=== PATIENT | female | born 1965 | race Caucasian/White ===

== ENCOUNTER 2020-04-23 18:32 | Inpatient (IN) | payer OTHER, SELFPAY ==
[~2020-04-23] VITALS: Ht 160 cm; Wt 65.3 kg
[~2020-04-23 18:32] MED LIST: FERR-20 PO
[2020-04-23] MEDS ORDERED: VANCOMYCIN PER PHARMACY MC PRN (18:35)
[2020-04-23] MEDS ORDERED: NACL 0.9% 2,000 ML IV ONE (18:35)
[2020-04-23] MEDS ORDERED: PIPERACILLIN/TAZOBACTAM 3.375 GM in DEXTROSE 5% 50 ML IV ONE (18:35)
[2020-04-23] MEDS ORDERED: VANCOMYCIN 1GM/DEXT 5% PREMIX 200 ML IV ONE (18:35)
--- NOTE | 2020-04-23 18:35 | NUR ---
[facility] GUZMAN TAKEN TO BED 10
[2020-04-23 18:36] VITALS: BP 126/75
[2020-04-23] MEDS ORDERED: MIDAZOLAM 2 MG/2 ML VIAL IVP STA (18:46)
[2020-04-23] MEDS ORDERED: MIDAZOLAM 2 MG/2 ML VIAL ONE (18:47)
--- NOTE | 2020-04-23 18:57 | NUR ---
@1836 received care of 55 y/o female BIBA from home c/o ALOC since this morning. Pt has Hx of liver problems ( unspecified), anemia, per EMS was d/c from here "last Thursday" for generalized bruising of right leg. Noted same bruised leg with pitting edema, jaundiced skin, sclera, ascites of abdomen. Received pt with IV access on left hand 18 G. Pt changed into hospital gown, hooked to monitoring manager. MD at bedside for assessment.
--- NOTE | 2020-04-23 19:01 | NUR ---
EKG performed by te, pt agitated. Advocated for sedation prior to ordered CT without contrast. Versed given. Pt taken to CT for imaging.
[2020-04-23 19:21] LABS: BASOPHILS # (AUTO) 0.2 K/uL (0.00-0.22); BASOPHILS % (AUTO) 3.7 % (0.0-2.0); EOSINOPHILS % (AUTO) 0.3 % (0.0-4.0); HEMATOCRIT 22.9 % (36-48); HEMOGLOBIN 7.8 g/dL (12.0-16.0); LYMPHOCYTES # (AUTO) 0.4 K/uL (2.5-16.5); LYMPHOCYTES % (AUTO) 7.2 % (20.5-51.1); MEAN CORPUSCULAR HEMOGLOBIN 34 pg (27-31); MEAN CORPUSCULAR HGB CONC 34 g/dL (33-37); MEAN CORPUSCULAR VOLUME 99.9 fL (80-94); MONOCYTES # (AUTO) 0.5 K/uL (0.8-1.0); NEUTROPHILS # (AUTO) 4.7 K/uL (1.8-7.7); NEUTROPHILS % (AUTO) 79.8 % (42.2-75.2); PLATELET COUNT (AUTO) 97 K/uL (140-450); RED BLOOD CELL COUNT(AUTO) 2.29 MIL/uL (4.20-5.40); RED CELL DISTRIBUTION WIDTH 21.6 % (11.6-13.7); WHITE BLOOD COUNT (AUTO) 5.9 K/uL (4.8-10.8)
--- NOTE | 2020-04-23 19:23 | NUR ---
RECEIEVED TRANSFER OF CARE REPORT FROM SHILPA DAN FOR CONTINUATION OF CARE.
--- NOTE | 2020-04-23 19:23 | NUR ---
HAND-OFF REPORT GIVEN TO SILVIO DAN FOR CONTINUATION OF NURSING CARE
[2020-04-23] MEDS ORDERED: VANCOMYCIN 1,000 MG VIAL ONE (19:29)
[2020-04-23] MEDS ORDERED: PIPERACILLIN/TAZOBACTAM 3.375 GM VIAL IV ONE (19:30)
[2020-04-23 19:31] LABS: PROTHROMBIN TIME 21.9 secs (10.8-13.4)
--- NOTE | 2020-04-23 20:00 | NUR ---
Per ERMD insert urinary barrientos catheter.
--- NOTE | 2020-04-23 20:06 | NUR ---
# 16 FR Michael catheter with 10 ml utilizing sterile technique. Immediate return of 600 ml orange urine noted. ERMD made aware of urine color. Bedside drainage bag placed below level of bladder. Urine sample collected and sent to lab. Pt tolerated procedure well.
[2020-04-23 20:25] LABS: ACETAMINOPHEN < 0.5 ug/ml (10-30); ALBUMIN 1.9 g/dL (3.4-5.0); ASPARTATE AMINOTRANSFERASE 84 U/L (15-37); CARBON DIOXIDE 19.5 mmol/L (21-32); CHLORIDE 103 mmol/L (98-107); CREATININE 1.1 mg/dL (0.6-1.3); GFR ARICAN-AMERICAN 66 mL/min (>90); GLUCOSE 148 mg/dL (74-106); POTASSIUM 3.5 mmol/L (3.5-5.1); SALICYLATE < 2.8 mg/dL (2.8-20.0); SODIUM SERUM 140 mmol/L (136-145); UREA NITROGEN, BLOOD 12 mg/dL (7-18)
[2020-04-23 20:27] LABS: APPEARANCE,URINE HAZY (CLEAR); BILIRUBIN,URINE 1+ (NEGATIVE); BLOOD, URINE 1+ (NEGATIVE); COLOR,URINE DARK YELLOW (YELLOW); LEUKOCYTE ESTERASE ,URINE NEGATIVE (NEGATIVE); NITRITE, URINE NEGATIVE (NEGATIVE); UGLUCOSE NEGATIVE (NEGATIVE)
[2020-04-23 20:32] LABS: COARSE GRANULAR CASTS,URINE 0-10 /LPF (None Seen); WBC,URINE 16-25 (MOD) /HPF (0-5)
[2020-04-23 20:33] LABS: HYALINE CASTS, URINE 0-10 /LPF (None Seen)
[2020-04-23 20:34] LABS: BARBITURATE, URINE NEGATIVE ng/ml (NEG <=200); BENZODIAZEPINE, URINE POSITIVE ng/mL (NEG <=200); CANNABINOID, URINE NEGATIVE ng/mL (NEG <=50); COCAINE, URINE NEGATIVE ng/mL (NEG <=300); OPIATE, URINE NEGATIVE ng/mL (NEG <=2000); PHENCYCLIDINE SCREEN,URINE NEGATIVE ng/mL (NEG <=25)
[2020-04-23] MEDS ORDERED: LACTULOSE 20 GM/30 ML UDC PO STA (20:41)
[2020-04-23] MEDS ORDERED: ONDANSETRON 4 MG/2 ML VIAL IVP STA (20:42)
--- NOTE | 2020-04-23 20:49 | NUR ---
roma kate swab collected and walked to lab.
--- NOTE | 2020-04-23 21:10 | NUR ---
# 14 FR NG tube placed to Right nare. Placement checked by auscultation of instilled air into stomach and aspiration of gastric contents. Tubing taped in place to prevent dislodging. Patient tolerated well.
--- NOTE | 2020-04-23 21:30 | NUR ---
PT FOUND ASLEEP IN SEMI-MOREIRA'S POSITION IN BED. PT HAS EQUAL RISE AND FALL UPON RESPIRATION. PT DOES NOT APPEAR TO BE IN DISTRESS. BED LOCKED IN LOWEST POSITION WITH 2 SIDE RAILS UP FOR SAFETY.
[2020-04-23] MEDS ORDERED: METOCLOPRAMIDE 10 MG/2 ML INJ VIAL IVP PRN (21:35)
[2020-04-23] MEDS ORDERED: ONDANSETRON 4 MG/2 ML VIAL IVP PRN (21:35)
[2020-04-23] MEDS ORDERED: MAGNESIUM OXIDE 400 MG TAB PO PRN (21:35)
[2020-04-23] MEDS ORDERED: POTASSIUM CHLORIDE 10 MEQ TABER PO PRN (21:35)
[2020-04-23] MEDS ORDERED: HYDROcodone/APAP 5/325 MG 1 TAB TAB PO PRN (21:35)
[2020-04-23] MEDS ORDERED: LORazepam 1 MG TAB PO PRN (21:35)
[2020-04-23] MEDS ORDERED: DEXT 5% /NACL 0.9% 1,000 ML IV SCH (21:35)
--- NOTE | 2020-04-23 21:47 | NUR ---
SPOKE TO PT SISTER "KEMAL FIELDSEZ" TO UPDATE ON PT STATUS. BEST CONTACT PER "KEMAL CHILDRESS" IS [phone]
--- NOTE | 2020-04-23 21:55 | NUR ---
ADVANCED NG TUBE 6CM PER PREVIOUS CT IMPRESSION RECOMMENDATION. REPEAT CT ORDER PLACED.
--- NOTE | 2020-04-23 22:00 | NUR ---
CT AT BEDSIDE.
--- NOTE | 2020-04-23 22:09 | NUR ---
SPOKE TO PT'S DAUGHTER "CLARITA TIAN" TO UPDATE ON PT STATUS. PER "CLARITA TIAN", BEST CONTACT IS [phone]
--- NOTE | 2020-04-23 22:20 | NUR ---
LAB AT BEDSIDE.
--- NOTE | 2020-04-23 22:47 | NUR ---
Patient will be admitted to care of DR SANCHEZ. Admited to TELEMETRY. Will go to room 123B. Belongings list completed. Report to DOROTHY DAN.
--- NOTE | 2020-04-23 22:59 | NUR ---
PT WAS TRANSFERRED TO ROOM 123b RECEIVING NURSE DOROTHY DAN AT BEDSIDE.
--- NOTE | 2020-04-23 22:59 | NUR ---
PT ARRIVED FROM ED TO UNIT VIA GURNEY. PT WITH ALOC, UNABLE TO MAKE NEEDS KNOWN. RESPIRATIONS ARE EVEN AND UNLABORED TO ROOM AIR. ABDOMEN IS SOFT AND NON-TENDER. PT WITH NGT IN PLACE. SKIN IS JAUNDICED, WARM, DRY, AND INTACT. PT WITH BRUISES ON RIGHT LEG. PT WITH IV ACCESS ON LEFT HAND G18 AND R HAND G20 PATENT AND INTACT. PT ONLY RESPONDING TO PAIN, PERRL. PT CONNECTED TO TELE MONITOR, VS TAKEN, MRSA SWAB COLLECTED. PT KEPT SAFE AND COMFORTABLE. WILL CONTINUE TO MONITOR.
[2020-04-23 23:00] VITALS: BP 157/91
[2020-04-23] MEDS ORDERED: cefTRIAXone 1,000 MG VIAL ONE (23:09)
[2020-04-24] VITALS (9 sets, daily range): BP systolic 84–110; BP diastolic 47–64
[2020-04-24] MEDS ORDERED: PROPRANOLOL 20 MG TAB PO SCH ×2 (00:50→09:00)
--- NOTE | 2020-04-24 01:00 | NUR ---
HR 130'S. DR. SANCHEZ MADE AWARE. PROPANOLOL 20MG PO ONCE GIVEN PER ORDER. WILL CONTINUE TO MONITOR.
[2020-04-24] MEDS ORDERED: CRUSHER, PILL MC ONE (01:02)
--- NOTE | 2020-04-24 03:36 | NUR ---
PT ASLEEP. VISIBLE CHEST RISE AND FALL NOTED. NO S/SX OF DISTRESS NOTED. PT KEPT SAFE AND COMFORTABLE. WILL CONTINUE TO MONITOR.
--- NOTE | 2020-04-24 04:42 | NUR ---
VS STABLE. PT STILL WITH ALOC. ONLY RESPONDS TO PAIN. PERINEAL CARE DONE WITH DIALYSIS RN. PT TOLERATED CARE WELL. NO S/SX OF DISTRESS NOTED. PT KEPT SAFET AND COMFORTABLE. CALL LIGHT WITHIN REACH. WILL CONTINUE TO MONITOR.
[2020-04-24 06:27] LABS: MAGNESIUM 1.1 mg/dL (1.8-2.4); PHOSPHORUS 1.5 mg/dL (2.5-4.9)
[2020-04-24 06:36] LABS: ALBUMIN 1.5 g/dL (3.4-5.0); ANION GAP 15.6 (8-16); CARBON DIOXIDE 21.9 mmol/L (21-32); POTASSIUM 3.5 mmol/L (3.5-5.1); TOTAL BILIRUBIN 9.9 mg/dL (0.0-1.0)
--- NOTE | 2020-04-24 07:21 | NUR ---
ENDORSED TO DAY SHIFT NURSE FOR CONTINUITY OF CARE
--- NOTE | 2020-04-24 07:22 | NUR ---
RECEIVED REPORT FROM INSPECTOR METAL CAN RN FOR CONTINUITY OF CARE. PATIENT ASLEEP IN BED WITH SUPINE POSITION, HOB ELEVATED 30 DEGREE. O2 SAT 98%, HR 85. NG TUBE IN PLACE, NPO EXCEPT MEDS. NERI CATHETER IN PLACE. IV SITE TO LEFT HAND INFUSING D5NS @ 80ML/HR. PATIENT IS NOT ALERT OR ORIENTED ONLY RESPONSE TO PAIN, PER INSPECTOR METAL CAN RN. SAFETY MEASURES IN PLACE, WILL CONTINUE TO MONITOR.
[2020-04-24] MEDS: LACTULOSE 20 GM/30 ML UDC PO SCH ×4 (08:42→21:17)
[2020-04-24] MEDS ORDERED: DOCUSATE 100 MG/10 ML UDC PO SCH (09:00)
[2020-04-24] MEDS ORDERED: DOCUSATE SODIUM 100 MG GELCAP PO SCH (09:00)
--- NOTE | 2020-04-24 09:32 | NUR ---
PATIENT HAS BEEN SCREENED AND CATEGORIZED MODERATE NUTRITION RISK. PATIENT WILL BE SEEN WITHIN 3-5 DAYS OF ADMISSION. 04/26/20 04/28/[address]
[2020-04-24 09:46] LABS: BASOPHILS % (AUTO) 0.3 % (0.0-2.0); EOSINOPHILS % (AUTO) 0.1 % (0.0-4.0); LYMPHOCYTES # (AUTO) 1.5 K/uL (2.5-16.5); LYMPHOCYTES % (AUTO) 11.6 % (20.5-51.1); MEAN CORPUSCULAR HEMOGLOBIN 34 pg (27-31); MEAN CORPUSCULAR HGB CONC 34 g/dL (33-37); MEAN CORPUSCULAR VOLUME 98.7 fL (80-94); MONOCYTES # (AUTO) 1.4 K/uL (0.8-1.0); MONOCYTES % (AUTO) 10.6 % (1.7-9.3); NEUTROPHILS # (AUTO) 10.1 K/uL (1.8-7.7); NEUTROPHILS % (AUTO) 77.4 % (42.2-75.2); PLATELET COUNT (AUTO) 92 K/uL (140-450); RED CELL DISTRIBUTION WIDTH 22.2 % (11.6-13.7); WHITE BLOOD COUNT (AUTO) 13.1 K/uL (4.8-10.8)
[2020-04-24 10:04] LABS: HEMATOCRIT 15.8 % (36-48); HEMOGLOBIN 5.4 g/dL (12.0-16.0)
--- NOTE | 2020-04-24 11:02 | NUR ---
PATIENT HAD LARGE BM WITH BLOODY STOOL. DR. BROWN INFORMED AND DR. BROWN PERSONALLY SEE THE PATIENT. HOB ELEVATED, WILL CONTINUE TO MONITOR.
[2020-04-24] MEDS ORDERED: PHYTONADIONE 10 MG in NACL 0.9% 50 ML IV SCH ×2 (11:30→14:30)
[2020-04-24] MEDS ORDERED: DEXT 5% / NACL 0.9% 500 ML IV SCH (11:55)
[2020-04-24] MEDS: DEXT 5% /NACL 0.9% 1,000 ML IV SCH (12:17)
[2020-04-24] MEDS: MAG SULF 2000 MG/WATER PREMIX 50 ML IV PRN (12:17)
--- NOTE | 2020-04-24 12:17 | NUR ---
MAG RIDER GIVEN VIA IVF FOR MAGNESIUM LEVEL 1.1. O2 SAT 98% IN RA. HR 81. SAFETY MEASURES IN PLACE, WILL CONTINUE TO MONITOR.
[2020-04-24] MEDS ORDERED: PANTOPRAZOLE 80 MG in NACL 0.9% 100 ML IVP SCH (12:30)
[2020-04-24] MEDS: OCTREOTIDE ACETATE 1.25 MG in NACL 0.9% 250 ML IV SCH (13:10)
--- NOTE | 2020-04-24 13:10 | NUR ---
OCTROTIDE GIVEN VIA IVF @ 10ML/HR. PER MD ORDER. WILL CONTINUE TO MONITOR.
[2020-04-24] MEDS ORDERED: PHYTONADIONE 10 MG/ML AMP IV ONE (13:55)
[2020-04-24] MEDS: PANTOPRAZOLE 80 MG in NACL 0.9% 100 ML IV SCH ×2 (14:20→22:30)
--- NOTE | 2020-04-24 14:20 | NUR ---
PATIENT WAS RE-SCREENED AND CATEGORIZED HIGH NUTRITIONAL RISK DUE TO TUBE FEEDING ORDER. PATIENT WILL BE ASSESSED WITHIN 1-[address]
--- NOTE | 2020-04-24 14:24 | NUR ---
SOCIAL WORK NOTE: Patient's Orientation Unable To Assess Information Provided By RAY CHILDRESS Jorge WAREMELCHOR Comments SW WAS UNABLE TO MEET PATIENT AT BEDSIDE. SW COMPLETED ASSESSMENT WITH PATIENT'S BROTHER. Digital Account Coordinator, Realtionship and Phone Number RAY PANDYA [phone] [facility] Power of Printed Circuit Board Pcb Designer No Does Patient Have a POLST No Identifying Problems No Social Work Triggers Is A Social Work Consult Needed No Mandate Report Filed No Explanation Of Identifying Problems PATIENT IS A 55-YEAR-OLD FEMALE ADMITTED FOR HEPATIC ENCEPHALOPATHY. PATIENT HAS PMHX OF LIVER DISEASE. Admitted From Home Pre-Admission Level Of Functioning Status Independent/Ambulatory Prior Resources/Services Used In Last 12 Months No Prior Resources Used Prior DME No Prior DME Used Dialysis Comments N/A Living Situation Lives With Family House Patient Had Caregiver No Home Support No Caregiver Issues Financial Issues No Known Financial Issue Referral To The Financial Counselor Needed No Factors/Needs No D/C Needs Identified Pt/Rep Participated In Discharge Plan Yes Patient/Family Agress With Discharge Plan Yes Discharge Plan Comments TENTATIVE DISCHARGE PLAN IS FOR PATIENT TO RETURN HOME. DC Plan Status Initiated
--- NOTE | 2020-04-24 14:37 | NUR ---
DC PLANNIN YRS OLD FEMALE PATIENT WAS ADMITTED FROM HOME WITH A DX OF HEPATIC ENCEPHALOPATHY. PT HAS A HX OF ALCOHOLIC LIVER CIRRHOSIS, ANEMIA. CXR SHOWED NO ACUTE DISEASE, CT HEAD NEGATIVE HIP AND KNEE X-RAY NO FRACTURE. RAPID COVID TEST NEGATIVE. H/H ON ADMISSION 5.4/15.8 TRANSFUSED 2 UNITS PRBC AND H/H 7.8/22.9. ADMINISTERED IVF, LACTULOSE THROUGH NGT . PT HAS RT THIGH HEMATOMA. CONSULTED WITH GI . DC PLAN TO GO HOME WHEN STABLE CM TO FOLLOW Addendum: 05/01/20 at 1119 by Danielle Copeland CM COREY WALTER: DR. SANCHEZ DISCUSSED HOSPICE WITH PATIENTS FAMILY.FAXED PATIENTS CLINICALS TO [facility]. Addendum: 05/01/20 at 1210 by Danielle Copeland CM COREY WALTER: SPOKE TO NATALIE AT [facility], SHE WILL BE REACHING OUT TO PATIENTS FAMILY SHORTLY. Addendum: 05/01/20 at 1406 by Ellen Garrett RN DC PLANNING: DR SANCHEZ SPOKE WITH PATIENT'S SISTER OLIVA SOMMER DISCUSSED THE HOSPICE AND FAMILY DECIDED PT TO BE ON HOSPICE. [facility] WILL CONTACT PATIENT CM TO FOLLOW. Addendum: 05/01/20 at 1606 by Ellen Garrett RN DC PLANNING: CALLED PT'S SISTER [phone] SPOKE WITH KEMAL HUGO THAT AGREED ON HOSPICE. LASHAY BEDOYA CHOSE [facility] AND SIGNED THE PAPERWORK. RECEIVED A CALL FROM [facility] [phone] SPOKE WITH ROSENDA STATED DAY CARE PROVIDER TIME WILL BE BETWEEN 6:30 -7:30 PM WITH [employer]. NOTIFIED JOHANNA BLUNT CM TO FOLLOW.
--- NOTE | 2020-04-24 17:00 | NUR ---
PICKED 1 UNIT OF RED BLOOD CELLS FROM THE BLOOD BANK.
--- NOTE | 2020-04-24 17:15 | NUR ---
VERIFIED WITH HOLLIE/RN, BLOOD TRANSFUSION STARTED WITH 50ML/HR. V/S CHECKED. BP 80/35. TEMP 98.2, HR 79. WILL CONTINUE TO MONITOR.
--- NOTE | 2020-04-24 17:30 | NUR ---
PATIENT TOLERATED THE BLOOD TRANSFUSION WELL. NO REACTION NOTED, WILL CONTINUE TO MONITOR.
--- NOTE | 2020-04-24 19:00 | NUR ---
PATIENT RECEIVED IN BED ALERT AND ORIENTED OCCASIONALLY TO SELF. SLEEPING DURING ROUNDING, PATIENT CONTINUED ON BLOOD TRANSFUSION. BLOOD TRANSFUSION CONTINUING. BP 102/69. O2 SAT 97% IN RA. RN. MAXIMAL CARE RENDERED. FALL AND SAFETY PRECAUTIONS MAINTAINED. 1 UNIT OF BLOOD INFUSING TO RIGHT HAND, FALL AND SAFETY PRECAUTIONS CONTINUED. PATIENT REMAINS NPO. NGT TO RIGHT NARE PATENT AND IN PLACE. JEVITY 1.2 CONTINUED AT 30ML/HR WITH 100CC H20 EVERY 4 HOURS. NO ACUTE DISTRESS NOTED. ONGOING CARE RENDERED. VSS.
--- NOTE | 2020-04-24 19:10 | NUR ---
ENDORSED PATIENT TO INDUSTRIAL REFRIGERATION MECHANIC RN FOR CONTINUITY OF CARE. PATIENT IN STABLE CONDITION STILL RUNNING BLOOD TRANSFUSION. BP 103/59. O2 SAT 97% IN RA.
[2020-04-24] MEDS: SENNA 8.6 MG TAB PO SCH (21:17)
[2020-04-24] MEDS: RIFAXIMIN 550 MG TAB PO SCH (21:17)
[2020-04-24] MEDS: HYDROCORTISONE SUPPOSITORY 25 MG SUPP RC SCH (21:19)
--- NOTE | 2020-04-24 22:30 | NUR ---
Attending physician Dr. Lin notified of patient blood culture result gram negative rods per lab results. No new orders given at this time.
[2020-04-25] VITALS (11 sets, daily range): BP systolic 106–131; BP diastolic 53–82
[2020-04-25] MEDS: DEXT 5% /NACL 0.9% 1,000 ML IV SCH ×2 (01:29→14:11)
--- NOTE | 2020-04-25 08:00 | NUR ---
PATIENT IS AOX0, OBTUNDED, RESPONSIVE TO PAINFUL STIMULI, UNABLE TO FOLLOW COMMANDS OR OPEN EYES SPONTANEOUSLY. SINUS RHYTHM, RESPIRATIONS EVEN AND UNLABORED ON ROOM AIR. VITAL SIGNS STABLE. NG TUBE TO RIGHT NARES WITH JEVITY 1.2 AT 30 CC/HOUR TOLERATING WELL WITH NO RESIDIUAL NOTED. IV FLUIDS INFUSING. BILATERAL HAND AND LOWER EXTREMITY EDEMA +1. RIGHT THIGH/LEG WITH NOTICEABLE HEMATOMA AND BRUISING. NERI CATHETER WITH CLEAR DARK ORANGE URINE. LAST BM LAST NIGHT, DIARRHEA. UPDATED PATIENT'S DAUGHTER ON PLAN OF CARE. REPOSITIONED Q2 HOURS. SKIN KEPT CLEAN DRY AND INTACT. WILL CONTINUE TO MONITOR.
--- NOTE | 2020-04-25 08:30 | NUR ---
Received patient, AOx4, sinus rhythm, respirations even and unlabored on room air 97%. Reports pain 7/10 sharp in RUQ. PRN Toradol given with relief. Patient denies passing gas. Ambulating to bathroom but with significant pain. 4x lap sites are clean dry intact covered with Dermabond. Tolerating meals well with no nausea/vomiting. Encouraged deep breathing and ambulating. Patient verbalized understanding. Discharge orders are in, patient agreeable to discharging home today with [place] and Ibuprofen. Notified Dr. Rolle. Addendum: 04/25/20 at 1020 by Agency 08 SY DAN Wrong patient
[2020-04-25] MEDS: PANTOPRAZOLE 80 MG in NACL 0.9% 100 ML IV SCH ×2 (08:43→18:23)
[2020-04-25] MEDS: RIFAXIMIN 550 MG TAB PO SCH ×2 (08:44→20:58)
[2020-04-25] MEDS: LACTULOSE 20 GM/30 ML UDC PO SCH ×4 (08:44→20:58)
[2020-04-25] MEDS: SENNA 8.6 MG TAB PO SCH ×2 (08:44→20:58)
[2020-04-25] MEDS ORDERED: POTASSIUM CHLORIDE 20% 40 MEQ/15 ML UDC GT SCH (09:00)
[2020-04-25] MEDS ORDERED: PHYTONADIONE 10 MG in NACL 0.9% 50 ML IV SCH (09:00)
[2020-04-25 09:38] LABS: BASOPHILS # (AUTO) 0.1 K/uL (0.00-0.22); BASOPHILS % (AUTO) 0.5 % (0.0-2.0); EOSINOPHILS % (AUTO) 0.5 % (0.0-4.0); HEMATOCRIT 21.6 % (36-48); HEMOGLOBIN 7.4 g/dL (12.0-16.0); LYMPHOCYTES # (AUTO) 1.7 K/uL (2.5-16.5); LYMPHOCYTES % (AUTO) 17.9 % (20.5-51.1); MEAN CORPUSCULAR HEMOGLOBIN 33 pg (27-31); MEAN CORPUSCULAR HGB CONC 34 g/dL (33-37); MEAN CORPUSCULAR VOLUME 95.2 fL (80-94); MONOCYTES # (AUTO) 1.2 K/uL (0.8-1.0); MONOCYTES % (AUTO) 12.5 % (1.7-9.3); NEUTROPHILS # (AUTO) 6.6 K/uL (1.8-7.7); NEUTROPHILS % (AUTO) 68.6 % (42.2-75.2); PLATELET COUNT (AUTO) 52 K/uL (140-450); RED BLOOD CELL COUNT(AUTO) 2.27 MIL/uL (4.20-5.40); RED CELL DISTRIBUTION WIDTH 17.9 % (11.6-13.7); WHITE BLOOD COUNT (AUTO) 9.7 K/uL (4.8-10.8)
[2020-04-25 10:18] LABS: ALBUMIN 1.7 g/dL (3.4-5.0); ANION GAP 13.3 (8-16); CARBON DIOXIDE 25.7 mmol/L (21-32); CREATININE 1.4 mg/dL (0.6-1.3); MAGNESIUM 1.9 mg/dL (1.8-2.4); TOTAL BILIRUBIN 9.8 mg/dL (0.0-1.0)
[2020-04-25] MEDS: HYDROCORTISONE SUPPOSITORY 25 MG SUPP RC SCH ×2 (11:53→20:59)
[2020-04-25] MEDS: KCL 20 MEQ/WATER INJ PREMIX 200 ML IV PRN ×2 (11:54→14:12)
--- NOTE | 2020-04-25 13:00 | NUR ---
PATIENT REMAINS OBTUNDED, OCCASIONALLY WAKING UP AND MOVING/SQUIRMING, STILL UNABLE TO FOLLOW COMMANDS.
[2020-04-25] MEDS: OCTREOTIDE ACETATE 1.25 MG in NACL 0.9% 250 ML IV SCH (13:07)
--- NOTE | 2020-04-25 14:19 | NUR ---
INCREASED TUBE FEEDING RATE TO 40 CC/HOUR (GOAL RATE PER ELECTRICIAN SOUND)
--- NOTE | 2020-04-25 15:24 | NUR ---
04/25/20 RD INITIAL ASSESSMENT COMPLETED PLEASE REFER TO NUTRITION ASSESSMENT UNDER CARE ACTIVITY FOR ESTIMATED NUTRITIONAL NEEDS. 1. RECOMMEND INCREASING GOAL RATE OF JEVITY 1.2 TO 40 ML/HR X 24 HR -WILL PROVIDE 1152 KCAL AND 53 GM OF PROTEIN. MEETING OVER 80% OF KCAL AND PROTEIN NEEDS 2. CONTINUE FREE WATER FLUSH OF 100 ML Q6H 3. IF/WHEN MEDICALLY STABLE FOR PO DIET, RECOMMEND SWALLOW EVALUATION 4. RD TO FOLLOW-UP 2-3 DAYS, HIGH RISK TOÑO [address] RD
--- NOTE | 2020-04-25 16:10 | NUR ---
PATIENT BECOMING INCREASINGLY RESTLESS &SQUIRMING IN BED AND PULLING AT NG TUBE. ATTEMPTED CALMING MEASURES. PATIENT REMOVED IV IN LEFT HAND. NOTIFIED DR. BROWN, RECEIVED ORDERS FOR PRN ATIVAN.
[2020-04-25 16:11] LABS: HEMATOCRIT 22.8 % (36-48); HEMOGLOBIN 7.7 g/dL (12.0-16.0)
[2020-04-25] MEDS ORDERED: PHYTONADIONE 10 MG/ML AMP SUBQ SCH (16:15)
[2020-04-25] MEDS ORDERED: MAG SULF 2000 MG/WATER PREMIX 100 ML IV ONE (16:15)
[2020-04-25] MEDS: LORazepam 2 MG/ML VIAL IVP PRN ×2 (16:48→22:27)
[2020-04-25] MEDS: POTASSIUM CHLORIDE 20% 40 MEQ/15 ML UDC GT SCH (17:18)
--- NOTE | 2020-04-25 18:20 | NUR ---
PATIENT IS NOW CALM, RESTING QUIETLY IN BED. NGT WITH JEVITY AT 40CC/HOUR. OCTREOTIDE AND PROTONIX GTT INFUSING. MAG RIDER INFUSING. NERI CATHETER DRAINING ORANGE URINE WITH SEDIMENTS. PATIENT HAD ONE BM, MAROON COLOR/FOUL ODOR. DR SHETTY AWARE. REMAINS SINUS RHYTHM ON COLLAR TAILOR. WILL ENDORSE TO NIGHT RN.
--- NOTE | 2020-04-25 19:25 | NUR ---
RECEIVED PT IN STABLE CONDITION FROM AM NURSE. ON TELE MONITOR. SLEEPING AT THIS TIME. RESPIRATION EVEN AND UNLABORED. HAS NGT IN PLACED GETTING JEVITY. HAS IV ACCESS LT UPEER ARM AND RT HAND G#20. GETTING IVF AND MAGNESIUM RIDER, PROTONIX AND SANDOSTATIN IV. BEDREST. NERI CATHETER TO GRAVITY DRAINING TO CLEAR DARK YELLOW URINE. FREQ ROUNDS NEEDED. BED ON LOWEST POSITION. SIDE RAILS UP X2. CALL LIGHT WITHIN REACH. WILL CONTINUE TO MONITOR.
[2020-04-25] MEDS: SODIUM PHOS / POTASSIUM PHOS 1 PKT PDR PO SCH (20:58)
--- NOTE | 2020-04-25 21:30 | NUR ---
PT HAD A LOOSE BM WITH BLOOD SMALL AMOUNT. CLEANED AND KEPT DRY. REPOSITIONED FOR COMFORT.
--- NOTE | 2020-04-25 22:15 | NUR ---
KEMAL, FAMILY MEMBER, VARNISHER JUST CALLED AND UPDATED ON PT CONDITION.
--- NOTE | 2020-04-25 22:27 | NUR ---
PT AGITATED, TRYING TO GET OUT OF BED. ATIVAN IVP GIVEN ORDERED PRN. REPOSITIONED AGAIN FOR COMFORT. WILL CONTINUE TO MONITOR.
[2020-04-26] VITALS: BP 125/67
--- NOTE | 2020-04-26 00:30 | NUR ---
CHECKED ON PT. SLEEPING. NO S/S OF ANY DISTRESS NOTED.
--- NOTE | 2020-04-26 02:00 | NUR ---
MADE ROUNDS. PT IS ASLEEP. IVF AND NGT FEEDING INFUSING WELL .
[2020-04-26] MEDS: DEXT 5% /NACL 0.9% 1,000 ML IV SCH (03:49)
[2020-04-26 04:00] VITALS: BP 143/77
[2020-04-26] MEDS: PANTOPRAZOLE 80 MG in NACL 0.9% 100 ML IV SCH (04:15)
--- NOTE | 2020-04-26 05:00 | NUR ---
PT HAD X2 LOOSE BLOODY STOOL. CLEANED AND KEPT DRY. REPOSITION FOR COMFORT.
[2020-04-26] MEDS: LORazepam 2 MG/ML VIAL IVP PRN ×2 (05:55→11:21)
--- NOTE | 2020-04-26 05:55 | NUR ---
PT STARTED AGAIN TO BE VERY AGITATED , KEEP ON MOVING ON THE BED , LEGS ON SIDE RAILS. MEDICATED WITH ATIVAN IV. REPOSITIONED FOR COMFORT.
[2020-04-26 06:14] LABS: PROTHROMBIN TIME 16.5 secs (10.8-13.4)
[2020-04-26 06:40] LABS: ALBUMIN 1.7 g/dL (3.4-5.0); ANION GAP 10.2 (8-16); CARBON DIOXIDE 25.8 mmol/L (21-32); CREATININE 1.1 mg/dL (0.6-1.3); PHOSPHORUS 2.4 mg/dL (2.5-4.9); TOTAL BILIRUBIN 10.3 mg/dL (0.0-1.0)
[2020-04-26 06:55] LABS: BASOPHILS % (AUTO) 0.5 % (0.0-2.0); EOSINOPHILS # (AUTO) 0.1 K/uL (0-0.4); EOSINOPHILS % (AUTO) 0.6 % (0.0-4.0); HEMATOCRIT 20.9 % (36-48); HEMOGLOBIN 7.2 g/dL (12.0-16.0); LYMPHOCYTES # (AUTO) 1.4 K/uL (2.5-16.5); LYMPHOCYTES % (AUTO) 14.3 % (20.5-51.1); MEAN CORPUSCULAR HEMOGLOBIN 33 pg (27-31); MEAN CORPUSCULAR HGB CONC 34 g/dL (33-37); MEAN CORPUSCULAR VOLUME 96.2 fL (80-94); MONOCYTES # (AUTO) 0.9 K/uL (0.8-1.0); NEUTROPHILS % (AUTO) 74.6 % (42.2-75.2); PLATELET COUNT (AUTO) 53 K/uL (140-450); RED BLOOD CELL COUNT(AUTO) 2.17 MIL/uL (4.20-5.40); RED CELL DISTRIBUTION WIDTH 18.1 % (11.6-13.7); WHITE BLOOD COUNT (AUTO) 9.5 K/uL (4.8-10.8)
--- NOTE | 2020-04-26 07:00 | NUR ---
MADE ROUNDS AGAIN. PT CONFUSED. REPOSITIONED FOR COMFORT.
--- NOTE | 2020-04-26 07:25 | NUR ---
ENDORSED PT IN STABLE CONDITION TO AM NURSE.
--- NOTE | 2020-04-26 07:26 | NUR ---
RECEIVED ENDORSEMENT FROM FORECLOSURE FIELD INSPECTOR NURSE FOR CONTINUATION PLAN OF CARE. PATIENT IN BED AOX0. PATIENT IV SITE IS IN PLACE AND INTACT. TUBE FEEDING IS IN PLACE AND INTACT. SAFETY MEASURES ARE IN PLACE. CALL LIGHT WITHIN REACH. WILL CONTINUE TO MONITOR NEEDED.
[2020-04-26 08:00] VITALS: BP 140/62
[2020-04-26] MEDS: LACTULOSE 20 GM/30 ML UDC PO SCH ×3 (08:59→21:00)
[2020-04-26] MEDS: RIFAXIMIN 550 MG TAB PO SCH ×2 (09:00→21:00)
[2020-04-26] MEDS: POTASSIUM CHLORIDE 20% 40 MEQ/15 ML UDC GT SCH ×2 (09:00→12:23)
[2020-04-26] MEDS: SODIUM PHOS / POTASSIUM PHOS 1 PKT PDR PO SCH (09:00)
[2020-04-26] MEDS: SENNA 8.6 MG TAB PO SCH (09:00)
--- NOTE | 2020-04-26 09:20 | NUR ---
MEDICATION DUE GIVEN CHECK VITAL SIGNS PRIOR TO MEDICATION BP 140/62 AL 71 PT IS STABLE NO DISTRESS NOTED STILL WITH TUBE FEEDING.
--- NOTE | 2020-04-26 09:30 | NUR ---
WHILE PROVIDING HYGIENIC CARE TO PATIENT. NOTICED PATIENT HAS BLOODY STOOL. DR. BROWN MADE AWARE. WILL CONTINUE MONITOR NEEDED
[2020-04-26] MEDS: HYDROCORTISONE SUPPOSITORY 25 MG SUPP RC SCH (09:44)
--- NOTE | 2020-04-26 09:44 | NUR ---
HYDROCORTISONE SUPPOSITORY 25MG GIVEN AND PATIENT HAS BLOODY STOOL DR BROWN AWARE.
[2020-04-26 12:00] VITALS: BP 156/90
[2020-04-26] MEDS ORDERED: PHYTONADIONE 10 MG/ML AMP SUBQ SCH (12:00)
--- NOTE | 2020-04-26 12:12 | NUR ---
MEDICATION DUE GIVEN PATIENT IS STABLE,
[2020-04-26] MEDS ORDERED: POTASSIUM CHLORIDE 20% 40 MEQ/15 ML UDC GT SCH (12:52)
[2020-04-26] MEDS: OCTREOTIDE ACETATE 1.25 MG in NACL 0.9% 250 ML IV SCH (12:54)
--- NOTE | 2020-04-26 12:58 | NUR ---
MEDICATION DUE GIVEN AND SANDOSTATIN INCREASE FROM 10 ML/HR TO 20 ML/HR PER DR SHETTY ORDER.
--- NOTE | 2020-04-26 13:22 | NUR ---
PATIENT TUBE FEEDING PUT ON HOLD PT IS NPO FOR NM SCAN TO RULE OUT GI BLEED PER FARNAZ (RADIOLOGIST) REQUEST.
--- NOTE | 2020-04-26 13:30 | NUR ---
PATIENT IS SCHEDULED FOR NM SCAN TO RULE OUT GI BLEED CALLED RADIOLOGIST AND BE HERE AROUND 6-7 PM TODAY.
[2020-04-26 16:00] VITALS: BP 126/79
[2020-04-26] MEDS: FERROUS SULFATE 325 MG TABEC PO SCH ×2 (16:37→20:00)
--- NOTE | 2020-04-26 17:00 | NUR ---
PATIENT PULLED OUT NG TUBE NO MEDICATION GIVEN.
--- NOTE | 2020-04-26 19:11 | NUR ---
ENDORSED TO SHEET METAL LAYOUT WORKER NURSE FOR CONTINUATION OF PLAN OF CARE. PATIENT IS IN STABLE CONDITION.
--- NOTE | 2020-04-26 19:15 | NUR ---
RECEIVED PT IN STABLE CONDITION FROM AM NURSE.PT ON TELE MONITOR. BEDREST. CONFUSED. WITH REGAN SOFT WRIST RESTRAINT TO PREVENT PULLING OF TUBES AND DISRUPTION OF CARE. AT THIS TIME PT IS ASLEEP. WITH IVF INFUSING ON THE LT UPPER ARM . NERI CATH DRAINING TO A DARK YELLOW COLORED URINE. NEED TO REINSERT NGT FOR FEEDING AND MEDICATIONS . FREQ ROUNDS NEEDED. BED ON LOW POSITION. SIDE RAILS UP X2 AND CALL LIGHT WITHIN REACH. WILL CONTINUE TO MONITOR.
[2020-04-26 20:00] VITALS: BP 139/91
--- NOTE | 2020-04-26 20:00 | NUR ---
TEMP 101. REMOVED ALL BLANKETS FOR NOW. COOLING MEASURES DONE. WILL CONTINUE TO MONITOR.
--- NOTE | 2020-04-26 20:27 | NUR ---
LEATHER PIECE INSPECTOR FOR BLEED SCAN HERE. OBTAINED 3 ML BLOOD FROM PT TO BE USED FOR THE TEST.
--- NOTE | 2020-04-26 20:28 | NUR ---
PT STILL REMAINS VERY AGITATED AND MOVES A LOT IN BED. TECH SAID HE CAN'T DO THE TEST IF PT IS LIKE THIS . PAGED DR. BROWN TO GET ORDER FOR ATIVAN IV TO CALM HER DOWN. DR. MANZANO RUBBER STAMP ASSEMBLER. WILL WAIT FOR CALL BACK.
[2020-04-26] MEDS ORDERED: LORazepam 2 MG/ML VIAL ONE (20:47)
[2020-04-26] MEDS: LORazepam 2 MG/ML VIAL IVP SCH ×2 (20:50→22:21)
--- NOTE | 2020-04-26 20:50 | NUR ---
ATIVAN 0.5 MG IVP GIVEN PER ONCE ORDERED.
--- NOTE | 2020-04-26 21:00 | NUR ---
TEMP RECHECKED 99.0
--- NOTE | 2020-04-26 21:50 | NUR ---
BLEED SCAN DONE AT BEDSIDE. WILL FOLLOW UP RESULT.
--- NOTE | 2020-04-26 22:50 | NUR ---
LT UPPER ARM IV ACCESS PULLED OUT. NEW IV ACCESS STARTED ON THE RT WRIST G#22. CLEAR AND PATENT.
--- NOTE | 2020-04-26 23:10 | NUR ---
NEW NGT TUBE F#14 INSERTED. PLACEMENT TO BE VERIFIED BY XRAY.
--- NOTE | 2020-04-26 23:40 | NUR ---
FRANKIE TECH CALLED AND SHE SAID THAT THEY CAN'T DO CXR NOT UNTIL AFTER 8-12 HRS DUE TO THE NUCLEAR SCAN THAT WAS JUST DONE. NIKITA DANAUTOMATIC TELLER MACHINE SERVICER AWARE.
[2020-04-27] VITALS: BP 131/89
--- NOTE | 2020-04-27 00:50 | NUR ---
XR TECH CAME AND DID CXR TO CONFIRM NGT PLACEMENT. WILL FOLLOW UP RESULT.
--- NOTE | 2020-04-27 01:00 | NUR ---
HAD A LOOSE BLOODY BM IN MODERATE AMOUNT HAS BEEN REPOSITIONED FOR COMFORT.
[2020-04-27] MEDS: OCTREOTIDE ACETATE 1.25 MG in NACL 0.9% 250 ML IV SCH (01:23)
--- NOTE | 2020-04-27 03:00 | NUR ---
PT REMANS TO BE REALLY CONFUSED. MOVING AROUND IN BED. REPOSITIONED FOR COMFORT.
[2020-04-27] MEDS: DEXT 5% /NACL 0.9% 1,000 ML IV SCH (04:09)
[2020-04-27 04:50] VITALS: BP 147/50
[2020-04-27] MEDS: LANSOPRAZOLE 30 MG CAPDR PO SCH (05:56)
--- NOTE | 2020-04-27 06:00 | NUR ---
NGT FEEDING RESTARTED AFTER CXR VERIFIED PLACEMENT.
[2020-04-27 06:29] LABS: BASOPHILS # (AUTO) 0.1 K/uL (0.00-0.22); BASOPHILS % (AUTO) 0.6 % (0.0-2.0); EOSINOPHILS # (AUTO) 0.1 K/uL (0-0.4); EOSINOPHILS % (AUTO) 0.8 % (0.0-4.0); HEMATOCRIT 21.4 % (36-48); HEMOGLOBIN 7.3 g/dL (12.0-16.0); LYMPHOCYTES # (AUTO) 1.4 K/uL (2.5-16.5); LYMPHOCYTES % (AUTO) 12.5 % (20.5-51.1); MEAN CORPUSCULAR HEMOGLOBIN 34 pg (27-31); MEAN CORPUSCULAR HGB CONC 34 g/dL (33-37); MEAN CORPUSCULAR VOLUME 98.7 fL (80-94); MONOCYTES # (AUTO) 1.3 K/uL (0.8-1.0); MONOCYTES % (AUTO) 12.1 % (1.7-9.3); NEUTROPHILS # (AUTO) 8.2 K/uL (1.8-7.7); PLATELET COUNT (AUTO) 54 K/uL (140-450); PROTHROMBIN TIME 17.7 secs (10.8-13.4); RED BLOOD CELL COUNT(AUTO) 2.17 MIL/uL (4.20-5.40); RED CELL DISTRIBUTION WIDTH 19.2 % (11.6-13.7); WHITE BLOOD COUNT (AUTO) 11.1 K/uL (4.8-10.8)
[2020-04-27 06:32] LABS: ANION GAP 13.1 (8-16); CREATININE 0.9 mg/dL (0.6-1.3); MAGNESIUM 1.7 mg/dL (1.8-2.4); PHOSPHORUS 3.4 mg/dL (2.5-4.9); POTASSIUM 4.1 mmol/L (3.5-5.1); TOTAL BILIRUBIN 16.5 mg/dL (0.0-1.0)
--- NOTE | 2020-04-27 07:20 | NUR ---
RECD REPORT FROM INDUSTRIAL SEWER NURSE, PT STABLE, SLEEPING, CALL LIGHT WITHIN REACH, NG TUBE PLACED BY INDUSTRIAL SEWER NURSE, JEVITY 1.2 AT 50ML/HR WITH 100ML WATER FLUSH Q4H.
--- NOTE | 2020-04-27 07:20 | NUR ---
ENDORSED PT IN STABLE CONDITION TO AM NURSE.
[2020-04-27 08:00] VITALS: BP 119/75
[2020-04-27] MEDS: FERROUS SULFATE 325 MG TABEC PO SCH ×3 (08:00→17:00)
--- NOTE | 2020-04-27 08:41 | NUR ---
PT A/O X 1, CAN SHAKE HEAD WHEN NAME CALLED, RESTLESS, KEEPS MOVING AROUND IN BED, WHEN ASKED IF SHE IS IN PAIN SHAKES HEAD YES BUT CANNOT POINT TO WHERE, JEVITY 1.2 RUNNING THROUGH NG TUBE AT 50 ML/HR. LUNGS CLEAR, R. THIGH SWELLING, PURPLE DISCOLORATION FROM ANKLE TO GROIN. MEASURED 50CM IN DIAMETER. WARM TO TOUCH. IV R. WRIST 22 G INFUSING D5/NS AT 15ML/HR.
[2020-04-27] MEDS: THIAMINE 100 MG TAB PO SCH (09:00)
--- NOTE | 2020-04-27 09:13 | NUR ---
PT RESTLESS, MOVING AROUND BED PULLING ON TUBING, HAS DISLODGED IV CATHETER, SENT MESSAGE TO PROVIDER TO INFORM
--- NOTE | 2020-04-27 09:25 | NUR ---
PER DR. BROWN, ADMINISTER 0.5MG ATIVAN ONCE.
[2020-04-27] MEDS ORDERED: HALOPERIDOL IM 5 MG/ML VIAL IM PRN (10:20)
[2020-04-27] MEDS: FOLIC ACID 1 MG TAB PO SCH (10:25)
[2020-04-27] MEDS: RIFAXIMIN 550 MG TAB PO SCH ×2 (10:25→20:13)
[2020-04-27] MEDS: LACTULOSE 20 GM/30 ML UDC PO SCH (10:25)
[2020-04-27] MEDS: POTASSIUM CHLORIDE 20% 40 MEQ/15 ML UDC GT SCH (10:26)
[2020-04-27] MEDS: LORazepam 2 MG/ML VIAL IM/IVP SCH ×2 (10:26→10:30)
[2020-04-27 12:00] VITALS: BP 157/63
--- NOTE | 2020-04-27 14:30 | NUR ---
ATTEMPTED TO REESTABLISH IV ACCESS, ATTEMPTED L. HAND , L.FOREARM X2, UNSUCCESSFUL. ICU NURSE ATTEMPTED WELL X2 UNSUCCESSFUL. PT TOLERATED PROCEDURE WELL. NOTIFIED ORDERED MID LINE
--- NOTE | 2020-04-27 14:54 | NUR ---
CONTACTED KEMAL CHILDRESS AND OBTAINED CONSENT OVER PHONE TO PLACE MIDLINE FOR MEDICATION ADMINISTRATION PURPOSES. PLACED IN CHART, MID LINE NURSE CALLED AND SCHEDULED. DR. BROWN CONSENTED OVER PHONE TO PLACE MIDLINE, WILL PHYSICALLY SIGN CONSENT TOMORROW, ORDER COSIGNED BY CHARGE NURSE.
[2020-04-27] MEDS ORDERED: LACTULOSE 20 GM/30 ML UDC PO SCH (15:55)
--- NOTE | 2020-04-27 16:03 | NUR ---
04/27/20 RD INITIAL ASSESSMENT COMPLETED PLEASE REFER TO NUTRITION ASSESSMENT UNDER CARE ACTIVITY FOR ESTIMATED NUTRITIONAL NEEDS. 1. CONTINUE JEVITY 1.2 @50 ML/HR X 24 HR -WILL PROVIDE 1440 KCAL AND 67 GM OF PROTEIN. MEETING OVER 100% OF KCAL AND PROTEIN NEEDS 2. CONTINUE FREE WATER FLUSH OF 100 ML Q6H 3. IF/WHEN MEDICALLY STABLE FOR PO DIET, RECOMMEND SWALLOW EVALUATION 4. RD TO FOLLOW-UP 2-3 DAYS, HIGH RISK TOÑO [address] RD
[2020-04-27 19:15] VITALS: BP 140/88
--- NOTE | 2020-04-27 19:30 | NUR ---
ENDORSED PT TO INTERIOR SYSTEMS CARPENTER NURSE FOR CONTINUITY OF CARE. PT STABLE ON SOFT REGAN .WRIST RESTRAINTS. PT PULLED OUT NGTUBE WHILE MOVING AROUND IN BED; PER , IF NGTUBE IS PULLED OUT DO NOT RE-ESTABLISH, ATTEMPT TO GIVE MEDS PO. MIDLINE R. UPPER ARM DOUBLE LUMEN INFUSING D5/NS AT 10ML/HR. PT STABLE
--- NOTE | 2020-04-27 19:31 | NUR ---
RECEIVED REPORT FROM DAY SHIFT NURSE. PT IN BED CONFUSED AND RESTLESS. RESPIRATIONS ARE EVEN AND UNLABORED TO ROOM AIR. ABDOMEN IS SOFT AND NON-TENDER. SKIN IS JAUNDICED, WARM, DRY, AND INTACT. PT WITH BRUISES ON RIGHT LEG. PT WITH RIGHT UPPER ARM MIDLINE PATENT AND INTACT, IVF INFUSING WELL. PT PULLED OUT NG TUBE. PER MD WE CAN TRY PO FOR MEDS. NO S/SX OF PAIN OR DISCOMFORT AT THIS TIME. FLACC 0. PT WITH SOFT WRIST RESTRAINTS IN PLACE DUE TO PULLING OUT TUBINGS AND EQUIPMENT AND TRYING TO GET OUT OF BED. NO S/SX OF INJURIES NOTED. PT KEPT SAFE. WILL CONTINUE TO MONITOR.
--- NOTE | 2020-04-27 20:14 | NUR ---
VS STABLE. PT ABLE TO TOLERATE MEDS PO. NO ASPIRATION NOTED. PT STILL CONFUSED, TRYING TO GET OUT OF BED DESPITE REORIENTATION. SAFETY MEASURES IN PLACE. WILL CONTINUE TO MONITOR.
--- NOTE | 2020-04-27 22:05 | NUR ---
PERINEAL CARE DONE, SHEETS CHANGED, PT ASSISTED IN POSITION OF COMFORT. SAFETY MEASURES IN PLACE. WILL CONTINUE TO MONITOR.
[2020-04-28] VITALS: BP 145/61
--- NOTE | 2020-04-28 00:12 | NUR ---
VS STABLE. PT IN BED CONFUSED, RESTLESS, AND IRRITABLE. PT STILL TRYING TO GET OUT OF BED AND PULL OUT TUBES. PT REPOSITIONED COMFORTABLY IN BED. FLACC 0. SAFETY MEASURES IN PLACE. WILL CONTINUE TO MONITOR.
--- NOTE | 2020-04-28 02:33 | NUR ---
ROUNDS MADE. PT ASLEEP. VISIBLE CHEST RISE AND FALL NOTED. NO S/SX OF PAIN OR DISCOMFORT NOTED. PT KEPT COMFORTABLE. SAFETY MEASURES IN PLACE. WILL CONTINUE TO MONITOR.
[2020-04-28] MEDS: DEXT 5% /NACL 0.9% 1,000 ML IV SCH (03:55)
[2020-04-28 04:00] VITALS: BP 141/68
--- NOTE | 2020-04-28 04:23 | NUR ---
VS STABLE. PERINEAL CARE DONE WITH REHAB/PRE VOCATIONAL COUNSELOR. CATHETER CARE DONE WELL. PT REPOSITIONED IN BED. NO S/SX OF PAIN OR DISCOMFORT NOTED. FLACC 0. PT STILL CONFUSED, REORIENTED. SAFETY MEASURES IN PLACE. WILL CONTINUE TO MONITOR.
[2020-04-28] MEDS: LANSOPRAZOLE 30 MG CAPDR PO SCH (05:46)
--- NOTE | 2020-04-28 05:55 | NUR ---
PT REQUESTING SOMETHING TO DRINK. PT ASSISTED IN DRINKING JUICE. PT WAS ABLE TO CONSUME 2 JUICEBOXES. NO ASPIRATION NOTED. PT ABLE TO TOLERATED. WILL CONTINUE TO MONITOR.
[2020-04-28 06:31] LABS: ALBUMIN 1.8 g/dL (3.4-5.0); ANION GAP 12.7 (8-16); CREATININE 0.8 mg/dL (0.6-1.3); MAGNESIUM 1.5 mg/dL (1.8-2.4); PHOSPHORUS 3.9 mg/dL (2.5-4.9); POTASSIUM 3.7 mmol/L (3.5-5.1); TOTAL BILIRUBIN 18.8 mg/dL (0.0-1.0)
[2020-04-28 06:57] LABS: BASOPHILS % (AUTO) 0.5 % (0.0-2.0); EOSINOPHILS # (AUTO) 0.1 K/uL (0-0.4); EOSINOPHILS % (AUTO) 0.8 % (0.0-4.0); HEMATOCRIT 20.2 % (36-48); HEMOGLOBIN 7.1 g/dL (12.0-16.0); LYMPHOCYTES # (AUTO) 1.1 K/uL (2.5-16.5); LYMPHOCYTES % (AUTO) 12.6 % (20.5-51.1); MEAN CORPUSCULAR HEMOGLOBIN 35 pg (27-31); MEAN CORPUSCULAR HGB CONC 35 g/dL (33-37); MEAN CORPUSCULAR VOLUME 100.3 fL (80-94); MONOCYTES # (AUTO) 0.9 K/uL (0.8-1.0); MONOCYTES % (AUTO) 9.8 % (1.7-9.3); NEUTROPHILS # (AUTO) 6.9 K/uL (1.8-7.7); NEUTROPHILS % (AUTO) 76.3 % (42.2-75.2); PLATELET COUNT (AUTO) 51 K/uL (140-450); RED BLOOD CELL COUNT(AUTO) 2.01 MIL/uL (4.20-5.40); RED CELL DISTRIBUTION WIDTH 19.7 % (11.6-13.7); WHITE BLOOD COUNT (AUTO) 9.1 K/uL (4.8-10.8)
--- NOTE | 2020-04-28 07:23 | NUR ---
ENDORSED TO DAY SHIFT NURSE FOR CONTINUITY OF CARE
--- NOTE | 2020-04-28 07:25 | NUR ---
RECEIVED BEDSIDE ENDORSEMENT FROM NIGHTSCAFT NURSE FOR CONTINUITY OF CARE.
[2020-04-28 08:00] VITALS: BP 145/43
[2020-04-28] MEDS: FERROUS SULFATE 325 MG TABEC PO SCH ×2 (08:44→17:11)
[2020-04-28] MEDS: POTASSIUM CHLORIDE 20% 40 MEQ/15 ML UDC GT SCH (08:45)
[2020-04-28] MEDS: FOLIC ACID 1 MG TAB PO SCH (08:45)
[2020-04-28] MEDS: MAG SULF 2000 MG/WATER PREMIX 50 ML IV PRN (08:45)
[2020-04-28] MEDS: RIFAXIMIN 550 MG TAB PO SCH ×2 (08:45→21:00)
[2020-04-28] MEDS: THIAMINE 100 MG TAB PO SCH (08:45)
--- NOTE | 2020-04-28 08:55 | NUR ---
PATIENT MAGNESIUM LEVEL 1.5, ADMINISTERED PRN MAGNESIUM SULFATE PRESCRIBED BY MD ORDER. PENDING CHEST XRAY FOR GTUBE PLACEMENT. AM MEDS HELD UNTIL CONFIRMATION. PATIENT IS AWAKE. RESTRAINTS IN PLACE. SKIN CHECK PERFORMED ON RESTRAINTS. NO BRUISING/ABRASIONS/TEARS. SAFETY MEASURES IN PLACE. WILL CONTINUE TO MONITOR.
--- NOTE | 2020-04-28 11:09 | NUR ---
REMOVED NG TUBE AND RESTRAINTS PER MD ORDER. PATIENT TOLERATING LIQUID AND APPLESAUCE WELL. PATIENT ABLE TO FOLLOW COMMANDS AND MAKE NEEDS KNOWN. SAFETY MEASURES IN PLACE. WILL CONTINUE TO MONITOR.
[2020-04-28 12:00] VITALS: BP 110/59
--- NOTE | 2020-04-28 15:28 | NUR ---
PATIENT RESTING IN BED. NO SIGNS OF DISTRESS. PATIENT IS STILL DISORIENTED, FOLLOWS COMMANDS AND NEEDS REMINDERS. ABLE TO MAKE NEEDS KNOWN. DENIES PAIN. SAFETY MEASURES IN PLACE, WILL CONTINUE TO MONITOR
[2020-04-28 16:00] VITALS: BP 157/42
[2020-04-28] MEDS: LACTULOSE 20 GM/30 ML UDC PO SCH (17:11)
--- NOTE | 2020-04-28 17:38 | NUR ---
ADMINISTERED PRESCRIBED MEDS PER MD ORDER. PATIENT WAS RESTING IN BED. AWAKENS TO NAME AND TOUCH. PATIENT TOLERATED MEDICATION WELL. MEDICATION EDUCATION REINFORCEMENT NEEDED. SAFETY MEASURES IN PLACE. WILL CONTINUE TO MONITOR.
--- NOTE | 2020-04-28 19:00 | NUR ---
PT WITH ALERT AND ORIENTED X1-2. REQUIRES REDIRECTION TO REALITY/SAFETY, PROMPTING AND QUEING REQUIRED. PATIENT UNABLE TO MAKE NEEDS KNOWN. PATIENT BREATHING ROOM AIR, RESPIRATIONS EVEN AND UNLABORED. ABDOMEN IS SOFT, NONDISTENDED AND NON-TENDER. SKIN IS JAUNDICED, WARM, DRY, AND INTACT. PT WITH DARK CLOSED BRUISES TO RIGHT LEG. RIGHT UPPER ARM DOUBLE LUMEN MIDLINE IN PLACE. PT TALKATIVE DURING CARE. PERRL. PT CONTINUED TELE MONITOR, VS TAKEN, MRSA SWAB COLLECTED. PT KEPT SAFE AND COMFORTABLE. DISCUSSED WITH PATIENT FALL AND SAFETY PRECAUTIONARY MEASURES, MEDICATION REGIMEN AND RN PLAN OF CARE. PATIENT COMPLIANT WITH PLAN OF CARE. VSS.
--- NOTE | 2020-04-28 19:16 | NUR ---
BEDSIDE ENDORSEMENT REPORTED TO NIGHTSHIFT NURSE FOR CONTINUITY OF CARE.
[2020-04-28 20:00] VITALS: BP 136/60
[2020-04-29] VITALS: BP 130/60
--- NOTE | 2020-04-29 | NUR ---
Patient sleeping during rounding, easily aroused. Fall and safety precautionary measures maintained. No respiratory distress noted. Respirations even and nonlabored. vital signs stable.
[2020-04-29 04:00] VITALS: BP 134/66
[2020-04-29 06:16] LABS: PROTHROMBIN TIME 20.1 secs (10.8-13.4)
[2020-04-29 06:17] LABS: ALBUMIN 1.7 g/dL (3.4-5.0); CARBON DIOXIDE 24.3 mmol/L (21-32); CREATININE 0.6 mg/dL (0.6-1.3); POTASSIUM 4.3 mmol/L (3.5-5.1); TOTAL BILIRUBIN 19.9 mg/dL (0.0-1.0)
[2020-04-29] MEDS: LANSOPRAZOLE 30 MG CAPDR PO SCH (06:23)
--- NOTE | 2020-04-29 07:18 | NUR ---
RECEIVED REPORT FROM DATA BASE DESIGN ANALYST RN FOR CONTINUITY OF CARE. PATIENT ASLEEP IN BED. AAOX1 PER DATA BASE DESIGN ANALYST. RIGHT UPPER ARM MIDLINE DOUBLE LUMEN SALINE LOCK. SKIN WARM AND DRY, JAUNDICED SKIN. RIGHT LEG BRUISE AND SWOLLEN. NO BM LAST NIGHT, PER DATA BASE DESIGN ANALYST. CONTACT PRECAUTION FOR POSITIVE E COLI IN URINE, SIGN POSTED, OBSERVED BY ALL STAFFS. NO ACUTE DISTRESS NOTED AT THIS TIME. SAFETY MEASURES IN PLACE, WILL CONTINUE TO MONITOR.
[2020-04-29 08:00] VITALS: BP 119/66
[2020-04-29] MEDS: FERROUS SULFATE 325 MG TABEC PO SCH ×2 (08:55→17:44)
[2020-04-29] MEDS: THIAMINE 100 MG TAB PO SCH (08:56)
[2020-04-29] MEDS: LACTULOSE 20 GM/30 ML UDC PO SCH ×3 (08:56→21:28)
[2020-04-29] MEDS: POTASSIUM CHLORIDE 20% 40 MEQ/15 ML UDC GT SCH (08:56)
[2020-04-29] MEDS: FOLIC ACID 1 MG TAB PO SCH (08:56)
[2020-04-29] MEDS: RIFAXIMIN 550 MG TAB PO SCH (08:56)
--- NOTE | 2020-04-29 09:00 | NUR ---
SCHEDULED MEDICATIONS GIVEN, EDUCATION PROVIDED, PATIENT VERBALIZED UNDERSTANDING. PATIENT AWAKE, ORIENTED HER NAME AND DATE OF , BUT DOES NOT KNOW WHERE SHE IS. ORIENTED PATIENT. YELLOW SOCKS OFFERED. NERI CATHETER IN PLACE, WITH ORANGE WITH BLOOD TINT URINE, PLATELET LEVEL 51. DR. BROWN MADE AWARE AND NO NEW ORDERS. SAFETY MEASURES IN PLACE, WILL CONTINUE TO MONITOR.
[2020-04-29 09:22] LABS: BASOPHILS # (AUTO) 0.1 K/uL (0.00-0.22); BASOPHILS % (AUTO) 0.8 % (0.0-2.0); EOSINOPHILS # (AUTO) 0.1 K/uL (0-0.4); EOSINOPHILS % (AUTO) 1.7 % (0.0-4.0); LYMPHOCYTES # (AUTO) 1.4 K/uL (2.5-16.5); LYMPHOCYTES % (AUTO) 15.7 % (20.5-51.1); MEAN CORPUSCULAR HEMOGLOBIN 35 pg (27-31); MEAN CORPUSCULAR HGB CONC 35 g/dL (33-37); MEAN CORPUSCULAR VOLUME 100.2 fL (80-94); MONOCYTES # (AUTO) 0.9 K/uL (0.8-1.0); MONOCYTES % (AUTO) 10.4 % (1.7-9.3); NEUTROPHILS # (AUTO) 6.1 K/uL (1.8-7.7); NEUTROPHILS % (AUTO) 71.4 % (42.2-75.2); PLATELET COUNT (AUTO) 50 K/uL (140-450); RED BLOOD CELL COUNT(AUTO) 1.93 MIL/uL (4.20-5.40); RED CELL DISTRIBUTION WIDTH 20.2 % (11.6-13.7); WHITE BLOOD COUNT (AUTO) 8.6 K/uL (4.8-10.8)
[2020-04-29 09:41] LABS: HEMATOCRIT 19.4 % (36-48); HEMOGLOBIN 6.8 g/dL (12.0-16.0)
[2020-04-29] MEDS ORDERED: PHYTONADIONE 10 MG in NACL 0.9% 50 ML IV SCH (11:00)
[2020-04-29] MEDS ORDERED: prednisoLONE 15 MG/5 ML UDC PO SCH (11:35)
[2020-04-29 12:00] VITALS: BP 112/53
--- NOTE | 2020-04-29 15:05 | NUR ---
RECEIVED A CALL FROM PATIENT'S SISTER KEMAL CHILDRESS STATING THAT PATIENT HAS PAIN AT HER LEGS. HOWEVER. PATIENT SLEEPING IN BED, DENIES PAIN, JUST STATED SHE IS TIRED. WILL CONTINUE TO MONITOR.
[2020-04-29 16:00] VITALS: BP 99/49
--- NOTE | 2020-04-29 19:25 | NUR ---
ENDORSED PATIENT TO SKILLS INSTRUCTOR RN FOR CONTINUITY OF CARE. PATIENT IN STABLE CONDITION.
--- NOTE | 2020-04-29 19:52 | NUR ---
Assumed care. A/O to self.Was drinking at the time. Hence able to feed self. In no acute distress. Denies pain at this time. Bed in low position. Call light within reach.
[2020-04-29 20:00] VITALS: BP 122/74
[2020-04-29] MEDS: ACETAMINOPHEN 325 MG TAB PO PRN (22:23)
[2020-04-30] VITALS: BP 102/50
[2020-04-30 04:00] VITALS: BP 111/60
[2020-04-30 06:24] LABS: BASOPHILS % (AUTO) 0.6 % (0.0-2.0); EOSINOPHILS # (AUTO) 0.2 K/uL (0-0.4); EOSINOPHILS % (AUTO) 2.3 % (0.0-4.0); LYMPHOCYTES # (AUTO) 1.5 K/uL (2.5-16.5); LYMPHOCYTES % (AUTO) 20.8 % (20.5-51.1); MEAN CORPUSCULAR HEMOGLOBIN 36 pg (27-31); MEAN CORPUSCULAR HGB CONC 35 g/dL (33-37); MEAN CORPUSCULAR VOLUME 102.8 fL (80-94); MONOCYTES # (AUTO) 0.8 K/uL (0.8-1.0); MONOCYTES % (AUTO) 11.8 % (1.7-9.3); NEUTROPHILS # (AUTO) 4.6 K/uL (1.8-7.7); NEUTROPHILS % (AUTO) 64.5 % (42.2-75.2); PLATELET COUNT (AUTO) 56 K/uL (140-450); RED BLOOD CELL COUNT(AUTO) 1.64 MIL/uL (4.20-5.40); RED CELL DISTRIBUTION WIDTH 21.2 % (11.6-13.7); WHITE BLOOD COUNT (AUTO) 7.2 K/uL (4.8-10.8)
[2020-04-30] MEDS: LANSOPRAZOLE 30 MG CAPDR PO SCH (06:29)
[2020-04-30 06:32] LABS: ALBUMIN 1.6 g/dL (3.4-5.0); CARBON DIOXIDE 24.6 mmol/L (21-32); CREATININE 0.8 mg/dL (0.6-1.3); POTASSIUM 3.6 mmol/L (3.5-5.1); TOTAL BILIRUBIN 16.8 mg/dL (0.0-1.0)
[2020-04-30 06:46] LABS: PROTHROMBIN TIME 19.8 secs (10.8-13.4)
--- NOTE | 2020-04-30 07:25 | NUR ---
RECEIVED REPORT FROM ACREAGE REPORTER RN FOR CONTINUITY OF CARE. PATIENT JAUNDICE LOOKING ASLEEP IN RIGHT LATERAL POSITION COMFORTABLY. RESPIRATORY EVEN UNLABORED ON RA. SKIN WARM AND DRY. RIGHT LEG WITH BRUISES. RIGHT UPPER MIDLINE DOUBLE LUMEN INTACT. NERI CATHETER IN PLACE. NO ACUTE DISTRESS NOTED AT THIS TIME. SAFETY MEASURES IN PLACE, WILL CONTINUE TO MONITOR.
--- NOTE | 2020-04-30 07:33 | NUR ---
Has done well through the night . In no acute distress. Denies pain. Endorsed to Am RN
[2020-04-30 08:00] VITALS: BP 98/56
[2020-04-30] MEDS: FERROUS SULFATE 325 MG TABEC PO SCH ×2 (08:25→17:19)
[2020-04-30] MEDS: FOLIC ACID 1 MG TAB PO SCH (08:25)
[2020-04-30] MEDS: THIAMINE 100 MG TAB PO SCH (08:26)
[2020-04-30] MEDS: prednisoLONE 15 MG/5 ML UDC PO SCH (08:26)
[2020-04-30] MEDS: POTASSIUM CHLORIDE 20% 40 MEQ/15 ML UDC GT SCH (08:26)
[2020-04-30] MEDS: LACTULOSE 20 GM/30 ML UDC PO SCH ×2 (08:27→20:50)
--- NOTE | 2020-04-30 08:28 | NUR ---
SCHEDULED MEDICATIONS GIVEN, EDUCATION PROVIDED, VERBALIZED UNDERSTANDING. PATIENT IS MORE ALERT TODAY. AAOX3-4. ABLE TO MAKE HER NEEDS KNOWN. URINE COLOR DARK ORANGE WITH BLOOD TINT. SAFETY MEASURES IN PLACE, WILL CONTINUE TO MONITOR.
--- NOTE | 2020-04-30 09:30 | NUR ---
RECEIVED CALL FROM BLOOD BANK [facility]. PATIENT'S HGB 5.9 TODAY. 2 UNITS OF PRBC WAS ORDERED YESTERDAY BY DR. BROWN. HOWEVER. PATIENT'S ANTIGEN SHOWS POSITIVE. [place] ANTIGEN CHECK WAS ORDERED FOR THIS PATIENT YESTERDAY BY [facility]. HOWEVER, IT WAS WEEKEND YESTERDAY. NO BLOOD DELIVERED FOR THIS PATIENT THIS MORNING. PER PERRY, SHE PUT STAT ORDER FOR THIS PATIENT DUE TO HGB DROPPED FROM 6.8 YESTERDAY TO 5.9 TODAY. HOPEFUL WILL RECEIVE THE BLOOD TODAY. DR. SANCHEZ WAS INFORMED.
[2020-04-30 09:33] LABS: HEMATOCRIT 16.8 % (36-48); HEMOGLOBIN 5.9 g/dL (12.0-16.0)
--- NOTE | 2020-04-30 10:32 | NUR ---
PATIENT STILL ASLEEP, WOKE PATIENT UP. INFORMED PATIENT NEED TO EAT. PATIENT REQUESTED FOR BANANA AND ICE CREAM. CALLED KITCHEN WILL BRING IT WITH LUNCH. ADJUSTED THE BED, OPENED MILK AND APPLE JUICE. HOT TEA PROVIDED. CHARGED PATIENT'S PHONE PER PATIENT'S REQUESTS. PATIENT KEPT COMFORTABLE.
--- NOTE | 2020-04-30 10:45 | NUR ---
FOLLOWED UP WITH BLOOD BANK FOR THE 2 UNITS PRBC ORDERED. PER [facility], THEY DO NOT HAVE BLOOD AVAILABLE YET FOR THIS PT DUE TO ANTI BODIES PRESENT, STATED SHE IS AWARE OF PT'S LATEST H&H AND SHE WILL FOLLOW UP WITH [facility]. GENIE DAN ASSIGNED MADE AWARE.
--- NOTE | 2020-04-30 11:15 | NUR ---
BANANA, ICE CREAM AND MILK PROVIDED TO THE PATIENT.
[2020-04-30 12:00] VITALS: BP 119/67
[2020-04-30 13:35] LABS: BILIRUBIN,DIRECT 6.3 mg/dL (0.0-0.3); TOTAL BILIRUBIN 16.7 mg/dL (0.0-1.0)
--- NOTE | 2020-04-30 14:15 | NUR ---
OCCULT BLOOD COLLECTED. PATIENT HAD 1 LARGE LOOSE STOOL. POSITION CHANGED AND KEPT CLEAN AND COMFORTABLY.
--- NOTE | 2020-04-30 15:08 | NUR ---
REACHED OUT BLOOD BANK. PRBC WILL BE READY IN ABOUT 15 MINS. WILL FOLLOW UP.
--- NOTE | 2020-04-30 15:50 | NUR ---
1 UNIT OF PRBC PICKED UP FROM THE BLOOD BANK.
[2020-04-30 16:00] VITALS: BP 116/72
--- NOTE | 2020-04-30 16:10 | NUR ---
VERIFIED WITH SECOND RN/HOLLIE, BLOOD TRANSFUSION STARTED WITH 50ML/HR, VITAL SIGNS STABLE. WILL CLOSELY TO MONITOR.
--- NOTE | 2020-04-30 16:25 | NUR ---
PATIENT TOLERATED THE TRANSFUSION WELL, NO REACTION NOTED. WILL CLOSELY TO MONITOR.
--- NOTE | 2020-04-30 16:40 | NUR ---
V/S CHECKED. BP 116/74, HR 86, O2 98%. TEMP 98.5. INCREASED INFUSING RATE TO 120ML/HR. WILL CONTINUE TO CLOSELY TO MONITOR.
--- NOTE | 2020-04-30 17:09 | NUR ---
04/30/20 RD FOLLOW UP COMPLETED PLEASE REFER TO NUTRITION ASSESSMENT UNDER CARE ACTIVITY FOR ESTIMATED NUTRITIONAL NEEDS. 1. CONTINUE SOFT DIET 2. IF PO INTAKE <75% CONSIDER GLUCERNA BID 3. RD TO FOLLOW-UP 3-5 DAYS, MODERATE RISK TOÑO [place], RD
--- NOTE | 2020-04-30 18:45 | NUR ---
BLOOD TRANSFUSION FINISHED, PATIENT IN STABLE CONDITION, NO REACTION NOTED. PATIENT'S SISTER KEMAL AT BEDSIDE.
--- NOTE | 2020-04-30 19:12 | NUR ---
ENDORSED PATIENT TO CAFETERIA COUNTER ATTENDANT RN FOR CONTINUITY OF CARE. PATIENT IN STABLE CONDITION. PATIENT'S SISTER KEMAL AT BEDSIDE.
--- NOTE | 2020-04-30 19:13 | NUR ---
RECEIVED REPORT FROM DAY SY JEFFERSON. PT AOX3 ON ROOM AIR. NO S/S RESPIRATORY DISTRESS. NO C/O PAIN AT THIS TIME. HAS DINESH MIDLINE, PATENT INTACT. NERI CATH IN PLACE DRAINING DARK BROWN URINE. R LEG HEMATOMA, BRUISES TO LEFT ARM AND CHEST. SAFETY MEASURES IN PLACE. CALL LIGHT WITHIN REACH. WILL CONTINUE TO MONITOR
[2020-04-30 20:00] VITALS: BP 112/71
--- NOTE | 2020-04-30 20:55 | NUR ---
ADMINISTERED SCHEDULED MEDICATION. NO DISTRESS NOTED. WILL CONTINUE TO MONITOR
[2020-04-30] MEDS: ACETAMINOPHEN 325 MG TAB PO PRN (23:40)
--- NOTE | 2020-04-30 23:44 | NUR ---
PRN TYLENOL GIVEN FOR TEMP 100.6, COOLING MEASURES PROVIDED. WILL CONTINUE TO MONITOR
[2020-05-01] VITALS: BP 115/66
--- NOTE | 2020-05-01 01:06 | NUR ---
2ND UNIT OF PRBC TRANSFUSING, VERIFIED WITH SECOND RN, MAURILIO. VS WITHIN NORMAL LIMITS. WILL MONITOR CLOSELY
[2020-05-01 04:00] VITALS: BP 122/50
--- NOTE | 2020-05-01 04:19 | NUR ---
BLOOD TRANSFUSION COMPLETED. NO S/S ACUTE DISTRESS NOTED, NO REACTION NOTED. PT IS IN STABLE CONDITION. WILL CONTINUE TO MONITOR
[2020-05-01] MEDS: LANSOPRAZOLE 30 MG CAPDR PO SCH (06:05)
[2020-05-01 07:16] LABS: BASOPHILS # (AUTO) 0.1 K/uL (0.00-0.22); BASOPHILS % (AUTO) 0.6 % (0.0-2.0); EOSINOPHILS # (AUTO) 0.1 K/uL (0-0.4); EOSINOPHILS % (AUTO) 1.1 % (0.0-4.0); HEMATOCRIT 22.3 % (36-48); HEMOGLOBIN 7.9 g/dL (12.0-16.0); LYMPHOCYTES # (AUTO) 1.2 K/uL (2.5-16.5); LYMPHOCYTES % (AUTO) 14.2 % (20.5-51.1); MEAN CORPUSCULAR HEMOGLOBIN 34 pg (27-31); MEAN CORPUSCULAR HGB CONC 35 g/dL (33-37); MEAN CORPUSCULAR VOLUME 96.1 fL (80-94); MONOCYTES # (AUTO) 0.9 K/uL (0.8-1.0); MONOCYTES % (AUTO) 10.4 % (1.7-9.3); NEUTROPHILS # (AUTO) 6.3 K/uL (1.8-7.7); NEUTROPHILS % (AUTO) 73.7 % (42.2-75.2); RED BLOOD CELL COUNT(AUTO) 2.32 MIL/uL (4.20-5.40); RED CELL DISTRIBUTION WIDTH 20.4 % (11.6-13.7); WHITE BLOOD COUNT (AUTO) 8.6 K/uL (4.8-10.8)
[2020-05-01 07:25] LABS: PLATELET COUNT (AUTO) 55 K/uL (140-450)
--- NOTE | 2020-05-01 07:30 | NUR ---
ENDORSED PT TO DAY RN FOR CONTINUITY OF CARE. PT IS IN STABLE CONDITION
--- NOTE | 2020-05-01 07:30 | NUR ---
RECEIVED REPORT FROM JOURNEYMAN SHEET METAL WORKER RN FOR CONTINUITY OF CARE. PATIENT RESTING IN BED, AWAKE. JAUNDICE LOOKING. RESPIRATORY EVEN UNLABORED ON RA. SKIN WARM TO TOUCH. RIGHT LEG HEMATOMA, WARM TO TOUCH, SWOLLEN. BRUISE NOTED AT MID CHEST AREA AND LEFT UPPER ARM. PLATELET LEVEL 55. IV TO RIGHT UPPER MIDLINE DOUBLE LUMEN. NERI CATHETER IN PLACE WITH BROWNISH WITH BLOOD TINT COLOR URINE. NO ACUTE DISTRESS NOTED, WILL CONTINUE TO MONITOR.
[2020-05-01 07:43] LABS: ALBUMIN 1.7 g/dL (3.4-5.0); ANION GAP 10.8 (8-16); CARBON DIOXIDE 24.2 mmol/L (21-32); CREATININE 0.7 mg/dL (0.6-1.3); TOTAL BILIRUBIN 16.2 mg/dL (0.0-1.0)
[2020-05-01 08:00] VITALS: BP 104/68
[2020-05-01] MEDS: FERROUS SULFATE 325 MG TABEC PO SCH ×2 (08:32→17:29)
[2020-05-01] MEDS: POTASSIUM CHLORIDE 20% 40 MEQ/15 ML UDC GT SCH (08:33)
[2020-05-01] MEDS: LACTULOSE 20 GM/30 ML UDC PO SCH (08:33)
[2020-05-01] MEDS: prednisoLONE 15 MG/5 ML UDC PO SCH (08:33)
[2020-05-01] MEDS: FOLIC ACID 1 MG TAB PO SCH (08:33)
[2020-05-01] MEDS: THIAMINE 100 MG TAB PO SCH (08:33)
--- NOTE | 2020-05-01 08:38 | NUR ---
SCHEDULED MEDICATIONS GIVEN, EDUCATION PROVIDED. PHYSICAL THERAPY AT BEDSIDE. BREAKFAST OFFERED WITH BANANA AND MILK PER PATIENT'S REQUESTS. NO ACUTE DISTRESS NOTED. WILL CONTINUE TO MONITOR.
[2020-05-01] MEDS ORDERED: PRE15L PO (10:30)
[2020-05-01] MEDS ORDERED: THIA-34 PO (10:30)
[2020-05-01] MEDS ORDERED: LACT10SO11 PO (10:30)
[2020-05-01] MEDS ORDERED: FOLI1TAB90 PO (10:30)
[2020-05-01] MEDS ORDERED: predniSONE 20 MG TAB PO SCH (10:37)
--- NOTE | 2020-05-01 10:42 | NUR ---
MIDLINE DRESSING CHANGED.
--- NOTE | 2020-05-01 10:47 | NUR ---
PER DR. SANCHEZ, HE CANCELED CAT SCAN. PENDING HOSPICE EVAL.
[2020-05-01 12:00] VITALS: BP 112/69
[2020-05-01] MEDS ORDERED: prednisoLONE 15 MG/5 ML UDC PO SCH (12:20)
--- NOTE | 2020-05-01 12:58 | NUR ---
PATIENT SITTING IN BED TALKING OVER THE PHONE. PATIENT STATED THAT SHE IS DOING OK. WILL CONTINUE TO MONITOR.
[2020-05-01] MEDS ORDERED: methylPREDNISolone SS 125 MG/2 ML VIAL IVP SCH (13:00)
--- NOTE | 2020-05-01 15:05 | NUR ---
PATIENT ASLEEP IN BED COMFORTABLY WITH NO ACUTE DISTRESS NOTED. WILL CONTINUE TO MONITOR.
[2020-05-01 15:11] LABS: BASOPHILS # (AUTO) 0.1 K/uL (0.00-0.22); BASOPHILS % (AUTO) 1.3 % (0.0-2.0); EOSINOPHILS # (AUTO) 0.1 K/uL (0-0.4); EOSINOPHILS % (AUTO) 0.8 % (0.0-4.0); HEMATOCRIT 24.9 % (36-48); HEMOGLOBIN 8.8 g/dL (12.0-16.0); LYMPHOCYTES # (AUTO) 0.8 K/uL (2.5-16.5); LYMPHOCYTES % (AUTO) 8.3 % (20.5-51.1); MEAN CORPUSCULAR HEMOGLOBIN 34 pg (27-31); MEAN CORPUSCULAR HGB CONC 35 g/dL (33-37); MEAN CORPUSCULAR VOLUME 95.8 fL (80-94); MONOCYTES # (AUTO) 0.6 K/uL (0.8-1.0); MONOCYTES % (AUTO) 6.6 % (1.7-9.3); NEUTROPHILS # (AUTO) 7.5 K/uL (1.8-7.7); PLATELET COUNT (AUTO) 54 K/uL (140-450); RED CELL DISTRIBUTION WIDTH 21.2 % (11.6-13.7); WHITE BLOOD COUNT (AUTO) 9.1 K/uL (4.8-10.8)
[2020-05-01 16:00] VITALS: BP 127/66
--- NOTE | 2020-05-01 17:29 | NUR ---
FERROUS SULFATE GIVEN. INFORMED PATIENT THAT TRANSPORT ENGINEER OPERATIONS AND MAINTENANCE TIME [id number].
--- NOTE | 2020-05-01 19:08 | NUR ---
ENDORSED PATIENT TO TODDLER TEACHER RN FOR CONTINUITY OF CARE/DISCHARGE. PATIENT IN STABLE CONDITION.
--- NOTE | 2020-05-01 19:35 | NUR ---
RECEIVED REPORT FROM DAY RN LI, PT AWAITING TRANSPORT TEAM TO BE DISCHARGED. REMOVED MIDLINE, APPLIED PRESSURE ON SITE FOR 1 MINUTE AND WRAPPED WITH DRESSING, REMOVED NERI CATH. TOLERATED WELL. NO DISTRESS NOTED. PT IS IN STABLE CONDITION, LEFT HOSPITAL WITH TRANSPORT TEAM
[2020-05-02] MEDS ORDERED: prednisoLONE 15 MG/5 ML UDC PO SCH (09:00)
[2020-05-02] MEDS ORDERED: predniSONE 20 MG TAB PO SCH (09:00)
== END 2020-05-01 19:35 | disposition hospice, home (50) | DRG 720 ==
LOC: MED 18:32 → EDBD 18:32 → MERGE 21:38 → MTU 21:38
PROVIDERS: ADMIT Internal Medicine; ATTEND Internal Medicine
PROC: 30233N1 Transfusion of Nonautologous Red Blood Cells into Peripheral Vein, Percutaneous Approach (ICD-10-PCS; 2020-04-24)
PROC: 30233K1 Transfusion of Nonautologous Frozen Plasma into Peripheral Vein, Percutaneous Approach (ICD-10-PCS; principal; 2020-04-25)
PROC: 05HY33Z Insertion of Infusion Device into Upper Vein, Percutaneous Approach (ICD-10-PCS; 2020-04-27)
PROC: B54PZZA Ultrasonography of Bilateral Upper Extremity Veins, Guidance (ICD-10-PCS; 2020-04-27)
DX: A41.9 Sepsis, unspecified organism (principal); K25.4 Chronic or unspecified gastric ulcer with hemorrhage; K72.90 Hepatic failure, unspecified without coma; D68.9 Coagulation defect, unspecified; E43 Unspecified severe protein-calorie malnutrition; Z20.822 Contact with and (suspected) exposure to COVID-19; K70.30 Alcoholic cirrhosis of liver without ascites; D62 Acute posthemorrhagic anemia; K70.10 Alcoholic hepatitis without ascites; R00.0 Tachycardia, unspecified; D69.6 Thrombocytopenia, unspecified; Z51.5 Encounter for palliative care; S70.11XA Contusion of right thigh, initial encounter; W18.30XA Fall on same level, unspecified, initial encounter; Y93.89 Activity, other specified; Z68.25 Body mass index [BMI] 25.0-25.9, adult; Y92.89 Other specified places as the place of occurrence of the external cause; Y99.8 Other external cause status
CPT/HCPCS: 36415; 70450; 71045; 73502; 73560; 78278; 80053; 80305; 81001; 81025; 82140; 82247; 82248; 82272; 82550; 83036; 83605; 83735; 83880; 84100; 84484; 85018; 85025; 85045; 85610; 86870; 86886; 86900; 86901; 86920; 87040; 87081; 87086; 93005; 93971; 96365; 96367; 96375; 97110; 97116; 97530; 99291; C9113; G0480; G0482; J0696; J1630; J2060; J2250; J2354; J2405; J2543; J3370; J3430; J3475; J3480; J7030; J7042; J7060; J7510; J7512; P9016; P9017; U0003